=== PATIENT | female | born 1985 | race Caucasian/White ===

== ENCOUNTER 2024-11-17 09:29 | Outpatient (CLI) | payer BC, SELFPAY ==
--- NOTE | ~2024-11-17 | MM_ITS ---
EXAMINATION: MM screening hillary BI w lola HISTORY: Screening mammogram TECHNIQUE: Craniocaudal and mediolateral oblique 3-D tomosynthesis images were obtained and synthetic 2-D images were generated. CAD analysis was submitted and interpreted. COMPARISON: No prior mammogram is available for comparison at this institution. BREAST PARENCHYMAL COMPOSITION:Not Dense. There are scattered areas of fibroglandular density. FINDINGS: No suspicious mass, calcification, or architectural distortion are identified in either henrietta ast to suggest malignancy. There has been no suspicious interval change. IMPRESSION: No mammographic evidence of malignancy. Recommend routine screening mammography in one year. BI-RADS Category 1: Negative Reviewed, dictated and finalized at location . O ASSEMBLER
--- OUTSIDE RECORDS SUMMARY | 2024-11-17 10:35 | XMS_ITS | Patient Health Summary ---
Author Organization [facility] Address [address] [place] [address] Care Team Providers Care Naval Science Teacher Name Role Phone Kacey Robles MD Primary Care Provider [phone] Werner Ba MD Unavailable Note from [facility],non-owned Affiliates and Associated Physician Practices is amultiple site organization consisting of ambulatory clinics and hospital sitesin [place], [place], [place] and [place]. This disclosure is being madepursuant to the Care Everywhere program and may not contain all information available regarding this patient. Last updated 18.[facility] Allergies No known active allergies Medications * Be aware that medications may not be up to date on this document. Alwaysverify current medications with the patient. * TAYTULLA 1-20 MG-MCG(24) CAPS(Started 02/13/2018) Take 1 tablet by mouth once daily 3 refills left * famotidine (PEPCID) 20 MG tablet(Started 03/05/2018) Take 1 tablet by mouth 2 times daily as needed for Heartburn Active Problems No known active problems Immunizations * INFLUENZA VACCINE(Given 07/19/2018) * INFLUENZA VACCINE, QUADR. (AFLURIA, FLUZONE QUADRIVALENT; 6MO+) (IIV4)(Given 05/15/2016) * TDAP (7yrs+)(Given 01/28/2017) Social History Tobacco Use Types Packs/Day Years Used Date Smoking Tobacco: Never Smokeless Tobacco: Never Tobacco Cessation:Counseling Given: No Alcohol Use Standard Drinks/Week Comments No 0 (1 standard drink = 0.6 oz pur e alcohol) Sex and Gender Information Value Date Recorded Sex Assigned at Not on file Gender Identity Not on file Sexual Orientation Not on file Last Filed Vital Signs Vital Sign Reading Time Taken Comments Blood Pressure 124/64 02/06/2019 12:17 PM CDT Pulse 73 02/06/2019 12:17 PM CDT Temperature 36.8 C (98.3 F) 02/06/2019 12:17 PM CDT Respiratory Rate 18 02/06/2019 12:17 PM CDT Oxygen Saturation 97% 02/06/2019 12:17 PM CDT Inhaled Oxygen Concentration - - Weight 88.5 kg (195 lb) 02/06/2019 12:17 PM CDT Height 167.6 cm (5' 6 ) 02/06/2019 12:17 PM CDT Body Mass Index 31.47 02/06/2019 12:17 PM CDT Procedures * CULTURE RESPIRATORY UPPER(Performed 02/06/2019) Performed for Acute pharyngitis, unspecified etiology * STREP A SCREEN - POINT OF CARE (AMB) STL(Performed 02/06/2019) Performed for Acute pharyngitis, unspecified etiology * CK BLOOD(Performed 03/08/2018) Performed for Myalgia * COMPREHENSIVE METABOLIC PANEL(Performed 03/08/2018) Performed for Fever, unspecified fever cause, Myalgia * CBC W AUTO DIFFERENTIAL(Performed 03/08/2018) Performed for Fever, unspecified fever cause * INFLUENZA A+B - POINT OF CARE (AMB)(Performed 03/08/2018) Performed for Fever, unspecified fever cause * STREP A SCREEN - POINT OF CARE (AMB) STL(Performed 03/08/2018) Performed for Fever, unspecified fever cause, Sore throat * CULTURE RESPIRATORY UPPER(Performed 09/20/2017) Performed for Acute pharyngitis, unspecified etiology * INFLUENZA A+B - POINT OF CARE (AMB)(Performed 09/20/2017) Performed for Acute pharyngitis, unspecified etiology * STREP A SCREEN - POINT OF CARE (AMB) STL(Performed 09/20/2017) Performed for Acute pharyngitis, unspecified etiology * INFLUENZA A+B - POCT (IP) URGENT CARE(Performed 09/17/2017) Performed for Fever, unspecified fever cause * STREP A SCREEN - POCT (IP) URGENT CARE(Performed 09/17/2017) Performed for Viral pharyngitis * STREP A SCREEN - POINT OF CARE (AMB) STL(Performed 07/20/2017) Performed for Strep throat Results * [facility] Throat Culture (02/06/2019 12:36 PM CDT) Only the most recent of2 resultswithin the time period is included. Pathologist [facility] Upper Respiratory Culture Final report [facility] INSURANCE BILL Result 1 [facility] INSURANCE BILL Comment:Routine respiratory darci Microbiology ENTIRE THROAT (SURFACE REGION OF NECK) / Unknown 02/06/2019 12:36 PM CDT 02/08/2019 Narrative Resulting Agency Comment Lab [facility] performed at: [facility] [address] [phone] Keyla Dimas APRN-INSOLE REINFORCER LAB - MICRO BIOLOGY ORDERABLES [facility] INSURANCE BILL [address] [place] [address] * STREP A SCREEN (02/06/2019 12:32 PM CDT) Only the most recent of4 resultswithin the time period is included. Pathologist [facility] Strep A Rapid POCT Negative Negative Strep A Internal Control Present Lot # [id number] Expiration Date 07/14/20 Throat ENTIRE THROAT (SURFACE REGION OF NECK) / Unknown 02/06/2019 12:32 PM CDT Keyla Dimas APRN-INSOLE REINFORCER LAB - POINT OF CARE ORDERABLES * (ABNORMAL) CBC W AUTO DIFFERENTIAL (03/08/2018 3:19 PM CDT) Pathologist [facility] WBC 7.6 4.4 - 10.7 x10E9/L [facility] ACCOUNT BILL RBC 4.48 3.80 - 5.20 x10E12/L [facility] ACCOUNT BILL Hemoglobin 14.7 12.0 - 15.6 gm/dL [facility] ACCOUNT BILL Hematocrit 43.5 35.9 - 45.5 % [facility] ACCOUNT BILL MCV 97.1 80.7 - 98.3 fl [facility] ACCOUNT BILL MCH 32.8 26.7 - 34.0 pg [facility] ACCOUNT BILL MCHC 33.8 30.8 - 35.9 gm/dL [facility] ACCOUNT BILL RDW 13.0 12.1 - 14.9 % [facility] ACCOUNT BILL Platelet Count 239 153 - 416 x10E9/L [facility] ACCOUNT BILL Comment:MPV FL BLOOD ([facility]) 1 0.1 fl 9.4-12.9 Granulocytes % 71.4 44.0 - 73.0 % [facility] ACCOUNT BILL Lymphocytes % 13.1(L) 20.0 - 43.0 % [facility] ACCOUNT BILL Monocytes % 14.7(H) 5.0 - 13.0 % [facility] ACCOUNT BILL Eosinophils % 0.3 0.0 - 6.0 % [facility] ACCOUNT BILL Basophils % 0.4 0.0 - 2.0 % [facility] ACCOUNT BILL Granulocytes Absolute 5.39 2.01 - 7.14 x10E9/L [facility] ACCOUNT BILL Lymphocytes Absolute 0.99(L) 1.07 - 3.94 x10E9/L [facility] ACCOUNT BILL Monocytes Absolute 1.11(H) 0.26 - 1.07 x10E9/L [facility] ACCOUNT BILL Eosinophils Absolute 0.02 0 - 0.47 x10E9/L [facility] ACCOUNT BILL Basophils Absolute 0.03 0 - 0.08 x10E9/L [facility] ACCOUNT BILL Immature Granulocytes 0.1 0 - 1 % [facility] ACCOUNT BILL Immature Granulocytes Absolute 0.01 0.00 - 0.06 x10E9/L [facility] ACCOUNT BILL nRBC 0 /100 WBC [facility] ACCOUNT BILL Blood BLOOD SPECIMEN / Unknown 03/08/2018 3:19 PM CDT 03/08/2018 Narrative Resulting Agency Comment [facility] [address] [phone] Kacey Robles MD LAB - HEMATOLOGY ORD ERABLES [facility] ACCOUNT BILL [address] [place] [address] * (ABNORMAL) COMPREHENSIVE METABOLIC PANEL (03/08/2018 3:19 PM CDT) [facility] Glucose 83 74 - 106 mg/dL [facility] ACCOUNT BILL BUN 12 7 - 21 mg/dL [facility] ACCOUNT BILL Creatinine 1.10 0.50 - 1.30 mg/dL [facility] ACCOUNT BILL eGFR by MDRD 57(L) >60 mL/min/1.7 3m2 [facility] ACCOUNT BILL eGFR by MDRD >60 >60 mL/min/1.7 3m2 [facility] ACCOUNT BILL Sodium 138 136 - 145 mmol/L [facility] ACCOUNT BILL Potassium 3.8 3.5 - 5.1 mmol/L [facility] ACCOUNT BILL Chloride 103 98 - 107 mmol/L [facility] ACCOUNT BILL CO2 27 22 - 31 mmol/L [facility] ACCOUNT BILL Calcium 9.2 8.5 - 10.1 mg/dL [facility] ACCOUNT BILL Protein Total 7.5 6.4 - 8.2 gm/dL [facility] ACCOUNT BILL Albumin 3.7 3.4 - 5.0 gm/dL [facility] ACCOUNT BILL Bilirubin Total 0.3 0.2 - 1.0 mg/dL [facility] ACCOUNT BILL Alkaline Phosphatase 66 38 - 126 U/L [facility] ACCOUNT BILL AST 11 5 - 40 U/L [facility] ACCOUNT BILL ALT 20 13 - 61 U/L [facility] ACCOUNT BILL Blood BLOOD SPECIMEN / Unknown 03/08/2018 3:19 PM CDT 03/08/2018 Narrative Resulting Agency Comment [address] [phone] Kacey Robles MD LAB - CHEMISTRY ORDE RABVIDAL Performing Organization Address City/[facility]/ZIP Co de Phone Number [facility] ACCOUNT BILL [address] [place] [address] * CK BLOOD (03/08/2018 3:19 PM CDT) CK 58 35 - 232 U/L [facility] ACCOUNT BILL Blood BLOOD SPECIMEN / Unknown 03/08/2018 3:19 PM CDT 03/08/2018 Narrative Resulting Agency Comment [address] [phone] Kacey Robles MD LAB - CHEMISTRY ORDE RABVIDAL [facility] ACCOUNT BILL [address] [place] [address] * INFLUENZA A+B - POINT OF CARE (AMB) (03/08/2018) Only the most recent of2 resultswithin the time period is included. Influenza A Antigen Rapid Negative Negative Influenza B Antigen Rapid Negative Negative Influenza Internal Control negative NEGATIVE - POSITIVE Influenza Lot Number [id number] Influenza Expiration Date 10/22/2019 Other NASOPHARYNGEAL SWAB / Unknown 03/08/2018 Kacey Robles MD LAB - POINT OF CARE ORDERABLES * INFLUENZA A+B - POCT (IP) URGENT CARE (09/17/2017 6:10 PM DRYING MACHINE OPERATOR) Influenza A Antigen Rapid Negative Negative [facility] POCT TESTING Influenza B Antigen Rapid Negative Negative [facility] POCT TESTING QC Verified Yes Yes [facility] POC T TESTING Throat ENTIRE THROAT (SURFACE REGION OF NECK) / Unknown 09/17/2017 6:10 PM DRYING MACHINE OPERATOR Ayse Rivera SHIFT MECHANIC-INSOLE REINFORCER LAB - POINT OF CA RE ORDERABLES [facility] POCT TESTING [address] [place] [address], [facility] * STREP A SCREEN - POCT (IP) URGENT CARE (09/17/2017 5:45 PM DRYING MACHINE OPERATOR) Strep A Rapid POCT Negative Negative [facility] POCT TESTING QC Verified Yes Yes [facility] POC T TESTING Throat ENTIRE THROAT (SURFACE REGION OF NECK) / Unknown 09/17/2017 5:45 PM DRYING MACHINE OPERATOR Ayse Rivera SHIFT MECHANIC-INSOLE REINFORCER LAB - POINT OF CA RE ORDERABLES [facility] POCT TESTING [address] [place] [address], [facility] Care Teams Naval Science Teacher Relationship Specialty Start Date End Date Kacey Robles MD PCP - General Family Medicine 12/12/16 [place] [id number] [phone] Obstetrics and Gynecology 12/12/16
--- OUTSIDE RECORDS SUMMARY | 2024-11-17 10:35 | XMS_ITS | Clinical Summary ---
Author Organization [facility] Address [address] [place] [address] Phone Care Team Providers Care Industrial Relations Counselor Name Role Phone Kacey Robles MD Primary Care Provider [phone] Allergies No known active allergies Medications norethindrone-e .estradioL-iron 1 mg-20 mcg (24)/75 mg (4) Capsule Take 1 Capsule by mouth daily. 28 Capsule 2 2022 Active Active Problems Problem Noted Date Diagnosed Date (spontaneous vaginal delivery) 11/06/2019 Resolved Problems Problem Noted Date Diagnosed Date Resolved Date Premature rupture of membranes 11/06/2019 11/06/2019 Normal labor and delivery 03/23/2017 Non-reassuring heart t ones complicating , antepartum 03/11/2017 11/06/2019 premature rupture of membranes in third trimester 11/06/2019 Immunizations Immunization Administration Dates Next Due (ADACEL/BOOSTRIX)(10 YR UP) TDAP VACCINE, 0.5ML, IM 09/23/2019 (SPIKEVAX) (12 YRS UP PRIMAR Y SERIES) COVID-19 VACCINE - MRNA-1273(PF) 100 MCG/0.5 ML IM SUSP 08/16/2021 INFLUENZA VACCINE QUADRIVALENT 6 MOS UP PF IM Family History Medical History Relation Name Comments Healthy Brother Healthy Daughter Diabetes Father Heart Disease Father Hypertension Father Colon Cancer Maternal Grandfather Healthy Mother Breast Cancer Paternal Aunt Coronary Artery Disease Paternal Grandmother Stroke Paternal Grandmother Healthy Sister Healthy Son Relation Name Status Comments Brother Alive Daughter Alive Father Alive Maternal Grandfather Mother Alive Paternal Aunt Paternal Grandmother Sister Alive Son Alive Social History Tobacco Use Types Packs/Day Years Used Date Smoking Tobacco: Never Smokeless Tobacco: Never Alcohol Use Standard Drinks/Week Comments No 0 (1 standard drink = 0.6 oz pur e alcohol) Feeling Safe Answer Date Recorded Within the last year, have y ou been afraid of your partner or ex-partner? Patient declined 11/06/2019 Within the last year, have y ou been humiliated or emotionally abused in other ways by your partner or ex-partner? Patient declined 11/06/2019 Within the last year, have y ou been kicked, hit, slapped, or otherwise physically hurt by your partner or ex-partner? Patient declined 11/06/2019 Within the last year, have y ou been raped or forced to have any kind of sexual activity by your partner or ex-partner? Patient declined 11/06/2019 Social Connections Answer Date Recorded In a typical week, how many times do you talk on the phone with family, friends, or neighbors? Patient declined 11/06/2019 How often do you get togethe r with friends or relatives? Patient declined 11/06/2019 How often do you attend mosque or taoist serv ices? Patient declined 11/06/2019 Do you belong to any clubs o r organizations such as mosque groups, unions, fraternal or athletic groups, or school groups? Patient declined 11/06/2019 How often do you attend meet ings of the clubs or organizations you belong to? Patient declined 11/06/2019 Are you , , di vorced, , never , or living with a partner? Patient declined 11/06/2019 Financial Resource Strain Answer Date R ecorded How hard is it for you to pa y for the very basics like food, housing, medical care, and heating? Patient declined 11/06/2019 Food Insecurity Answer Date Recorded Within the past 12 months, y ou worried that your food would run out before you got the money to buy more. Patient declined Within the past 12 months, t he food you bought just didn't last and you didn't have money to get more. Patient declined Transportation Needs Answer Date Record ed In the past 12 months, has l ack of transportation kept you from medical appointments or from getting medications? Patient declined 11/06/2019 In the past 12 months, has l ack of transportation kept you from meetings, work, or from getting things needed for daily living? 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 Not on file Not on file Last Filed Vital Signs Vital Sign Reading Time Taken Comments Blood Pressure 120/72 2022 1:15 PM CDT Pulse 76 04/06/2020 7:11 PM CDT Temperature 37.2 C (99 F) 04/06/2020 7:11 PM CDT Respiratory Rate 16 04/06/2020 7:11 PM CDT Oxygen Saturation 97% 04/06/2020 7:11 PM CDT Inhaled Oxygen Concentration - - Weight 98 kg (216 lb) 2022 1:15 PM CDT Height 167.6 cm (5' 6 ) 2022 1:15 PM CDT Body Mass Index 34.86 2022 1:15 PM CDT Plan of Treatment Health Maintenance Due Date Last Done Comments HEPATITIS B VACCINES (1 of 3 - 19+ 3-dose series) 2003 INFLUENZA VACCINE (#1) 2024 , 06/22/2019, 05/15/2016 COVID-19 Vaccine (2 - 2023-2 5 season) 2024 08/16/2021 BREAST CANCER SCREENING 2024 CERVICAL CANCER SCREENING 06/04/20252021, 11/24/2018, 11/19/2015 (Previously completed) DTAP/TDAP/TD VACCINES (3 - T d or Tdap) 09/23/2029 09/23/2019, 01/28/2017 HPV VACCINES Aged Out No longer eligi ble based on patient's age to complete this topic PNEUMOCOCCAL VACCINE 0-49 YEARS Aged Out No longer eligible b ased on patient's age to complete this topic Procedures Procedure Name Priority Date/Time Associated Diagnosis Comments CERV/VAG CYTO AGE BASED SCREEN PAP W CT/NG Routine 2022 1:28 PM CDT Encounter for gynecological examination without abnormal finding from Last 3 Months or Most Recently Relevant to Health Maintenance Results * CERV/VAG CYTO AGE BASED SCREEN PAP W CT/NG (2022 1:28 PM CDT) COMMENT (PAP): [facility] Comment: This order for age-based cervical cancer and STI screening follows ACOG guidelines(PB 168, 140, ZZO952). See individual assays for performing site location. CLINICAL INFORMATION [facility] Comment:None given LAST MENSTRUAL PERIOD [facility] Comment:NONE GIVEN PREV PAP: [facility] Comment:NONE GIVEN PREV BX: [facility] Comment:NONE GIVEN SOURCE [facility] Comment:End[facility] ADEQUACY: [facility] Comment: Satisfactory for evaluation. Endocervical/transformation zone component present. Age and/or menstrual status not provided PAP INTERP [facility] Comment:Negative for intraep ithelial lesion or malignancy. COMMENT (PAP TEST) [facility] Comment: This Pap test has been evaluated with computer assisted technology. OPERATING ROOM MANAGER: Jose est [facility] [place] Comment: BES, CT(ASCP) CT screening location: [place] [address] [place] [address] EXPLANATORY NOTE [facility] [place] Comment: EXPLANATORY NOTE: The Pap is a screening test for cervical cancer. It is not a diagnostic test and is subject to false negative and false positive results. It is most reliable when a satisfactory sample, regularly obtained, is submitted with relevant clinical findings and history, and when the Pap result is evaluated along with historic and current clinical information. HPV E6/E7 Not Detected Not Detected [facility] Comment: Methodology: [employer]-Mediated Amplification This assay detects E6/E7 viral messenger RNA (mRNA) from 14 high-risk HPV types (16,18,31,33,35,39,45,51,52,56,58,59,66,68). Cervical sources are required for HPV testing. If a vaginal source from a patient who has had a total hysterectomy with removal of cervix was submitted, please contact the testing laboratory for alternative testing options. For additional information, please refer to http://education.Connectify/faq/FQA007q3 (This link if provided for information/ educational purposes only.) C TRAC RNA NOT DETECTED NOT DETECTED [facility] N.GONORRHOEAE RNA, TMA NOT DETECTED NOT DETECTED [facility] COMMENT INFECTIOUS DISEASE [facility] Comment: The analytical performance characteristics of this assay, when used to test SurePath(TM) specimens have been determined by [facility]. The modifications have not been cleared or approved by the FDA. This assay has been validated pursuant to the CLIA regulations and is used for clinical purposes. For additional information, please refer to https://education.Connectify/faq/YFZ902 (This link is being provided for information/ educational purposes only.) Test Performed at: [facility] [id number] [address] Kevyn Bull D.O., MPH SL [facility] SW[facility] OF [facility] / Unknown 2022 1:28 PM CDT 06/05/2022 4:[address] [facility] NP PATHOLOGY/CYTOLOGY ORDERABLES Final Result [facility] [phone] [facility] [address] [place] [address] from Last 3 Months or Most Recently Relevant to Health Maintenance Insurance [facility] BLUE ACCESS/TRUE BLUE PPO RX [place] [employer] (INTERNAL) [facility] BLUE PREFERRED Advance Directives For more information, please contact: [phone] * Full Code (Latest Code Status on File) Date Activated Date Inactivated Comments 11/07/2019 12:11 AM 11/08/2019 2:47 PM * Full Code Date Activated Date Inactivated Comments 11/06/2019 2:18 AM 11/07/2019 12:11 AM * Full Code Date Activated Date Inactivated Comments 03/24/2017 8:57 AM 03/26/2017 3:15 PM * Full Code Date Activated Date Inactivated Comments 03/23/2017 5:52 PM 03/24/2017 8:57 AM * Full Code Date Activated Date Inactivated Comments 03/11/2017 6:22 PM 03/11/2017 9:09 PM Care Teams Industrial Relations Counselor Relationship Specialty Start Date End Date Kacey Robles MD PCP - General Family Practice 07/27/19
--- OUTSIDE RECORDS SUMMARY | 2024-11-17 10:35 | XMS_ITS | Referral Summary ---
Author Organization [facility] Address [address] [place] [address] Care Team Providers Care Behavioral Psychologist Name Role Phone Kacey Robles MD Primary Care Provider [phone] Werner Ba MD Unavailable Source Comments [facility],non-owned Affiliates and Associated Physician Practices is amultiple site organization consisting of ambulatory clinics and hospital sitesin [place], [place], [place] and [place]. This disclosure is being madepursuant to the Care Everywhere program and may not contain all information available regarding this patient. Last updated 18.[facility] Allergies No known active allergies Medications * Be aware that medications may not be up to date on this document. Alwaysverify current medications with the patient. Medication Sig Dispensed Refills Start Date End Date Status TAYTULLA 1-20 MG-MCG(24) CAPS Take 1 tablet by mouth once daily 3 02/13/2018 Active famotidine (PEPCID) 20 MG tabletIndications:R alli and nonspecific skin eruption Take 1 tablet by mouth 2 times daily as needed for Heartburn 20 tablet 03/05/2018 Active Additional Information Patient not taking.Reported on 02/06/2019 Active Problems No known active problems Immunizations Name Administration Dates Next Due INFLUENZA VACCINE 07/19/2018 INFLUENZA VACCINE, QUADR. (A FLURIA, FLUZONE QUADRIVALENT; 6MO+) (IIV4) 05/15/2016 TDAP (7yrs+) 01/28/2017 Social History Tobacco Use Types Packs/Day Years [...] Mass Index 31.47 02/06/2019 12:17 PM CDT Plan of Treatment Not on file Care Teams Behavioral Psychologist Relationship Specialty Start Date End Date Kacey Robles MD PCP - General Family Medicine 12/12/16 [place] [id number] [phone] Obstetrics and Gynecology 12/12/16
--- OUTSIDE RECORDS SUMMARY | 2024-11-17 10:35 | XMS_ITS | Clinical Summary ---
Author Organization [facility] Address [address] [place] [address] Care Team Providers Care Final Rail Cutter Name Role Phone Kacey Robles MD Primary Care Provider [phone] Werner Ba MD Unavailable Source Comments [facility],non-owned Affiliates and Associated Physician Practices is amultiple site organization consisting of ambulatory clinics and hospital sitesin [place], [place] and [place]. This disclosure is being madepursuant to the Care Everywhere program and may not contain all information available regarding this patient. Last updated 18.[facility] Allergies No known active allergies Medications * [...] QUADRIVALENT; 6MO+) (IIV4) 05/15/2016 TDAP (7yrs+) 01/28/2017 Family History Medical History Relation Name Comments Diabetes Father Hypertension Father Cancer - Colon Maternal Grandfather Breast Cancer after age 50 or unknown Paternal Aunt [place] Paternal Grandmother Relation Name Status Comments Brother Alive Father Alive Maternal Grandfather Mother Alive Paternal Aunt Paternal Grandmother Sister Alive Social History Tobacco Use Types Packs/Day [...] 02/06/2019 12:17 PM CDT Plan of Treatment Health Maintenance Due Date Last Done Comments LIPID TESTING 1984 MAMMOGRAM 1984 HIV SCREENING 1999 HEPATITIS C SCREENING 05/31/2002 HEPATITIS B VACCINE (1 of 3 - 19+ 3-dose series) 2003 PAP SMEAR 11/24/2021 11/24/2018, 11/24/2018, 09/14/2016 (Done Outside Per Patient) COVID-19 VACCINE ( - 2023-2 5 season) 2024 INFLUENZA VACCINE (#1) 2024 07/19/2018, 2015 DEPRESSION SCREENING 09/14/2024 DTAP/TDAP/TD VACCINES (2 - T d or Tdap) 01/28/2027 01/28/2017 ZOSTER VACCINE (1 of 2) 2034 HIB VACCINE Aged Out No longer eligi ble based on patient's age to complete this topic HPV VACCINE Aged Out No longer eligi ble based on patient's age to complete this topic MENINGOCOCCAL (Group B) VACCINE Aged Out No longer eligible based on patient's age to complete this topic MENINGOCOCCAL VACCINE Aged Out No jerry patsy eligible based on patient's age to complete this topic PNEUMOCOCCAL VACCINE Aged Out No long er eligible based on patient's age to complete this topic Care Teams Final Rail Cutter Relationship Specialty Start Date End Date Kacey Robles MD PCP - General Family Medicine 12/12/16 [place] [id number] [phone] Obstetrics and Gynecology 12/12/16
== END 2024-11-17 09:30 | disposition home or self-care (01) ==
DX: Z12.31 Encounter for screening mammogram for malignant neoplasm of breast (principal)
CPT/HCPCS: 77063; 77067